=== PATIENT | female | born 1970 | race Two or more races ===

== ENCOUNTER 2023-12-05 22:55 | Emergency (ER) | payer OTHER ==
[~2023-12-05] VITALS: Ht 162.6 cm; Wt 63.5 kg
[~2023-12-05 22:55] MED LIST: AMBIEN10 MG; CIPRO750 MG PO; ESKALITH300 MG; LEVSIN/SL0.125 MG SL; NASONEB NASAL1 EACH MC; PHENERGAN25 MG PO; PROTONIX40 MG PO; SEROQUEL300 MG; SYNTHROID50 MCG; SYNTHROID75 MCG; TESSALON200 MG; TRAMADOL HCL50 MG PO; XYZAL5 MG
[2023-12-06] MEDS ORDERED: ORPHENADRINE CITRATE 30 MG/ML AMPUL IM STA (01:53)
[2023-12-06] MEDS ORDERED: ACETAMINOPHEN 500 MG GEL..CAP PO STA (01:54)
== END 2023-12-06 02:58 | disposition home or self-care (01) ==
LOC: ER 22:56
DX: S13.4XXA Sprain of ligaments of cervical spine, initial encounter (principal); V49.88XA Car occupant (driver) (passenger) injured in other specified transport accidents, initial encounter; Y93.89 Activity, other specified; Y92.413 State road as the place of occurrence of the external cause; Z88.6 Allergy status to analgesic agent; Z88.2 Allergy status to sulfonamides